=== PATIENT | female | born 1970 | race Caucasian/White ===

== ENCOUNTER 2021-02-15 19:44 | Observation (INO) ==
[2021-02-15 20:54] LABS: Basophils % 0.1 %; Eosinophils % 0.3 %; Hematocrit 38.5 % (35.3-44.9); Hemoglobin 13.2 g/dL (11.5-15.4); Immature Granulocytes % 0.4 % (0-4); Lymphocytes # 0.9 K/mcL (0.6-4.6); Lymphocytes % 11.5 %; Mean Corpuscular HGB Conc 34.3 g/dL (31.6-35.5); Mean Corpuscular Hemoglobin 28.8 pg (28.0-33.3); Mean Corpuscular Volume 84.1 fL (83.0-100.0); Mean Platelet Volume 10.4 fL (9.4-12.4); Monocytes # 0.5 K/mcL (0.0-1.3); Neutrophils # 6.4 K/mcL (1.6-8.9); Platelet Count 274 K/mcL (140-400); Red Blood Count 4.58 M/mcL (3.82-4.97); Red Cell Distribution Width 12.1 % (11.5-14.5); Segmented Neutrophils % 81.7 %; White Blood Count 7.8 K/mcL (4.3-11.1)
[2021-02-15 20:56] LABS: VBG HCO3 25 mEq/L (21-27); VBG PCO2 35 mmHg (41-51); VBG PH 7.45 pH Units (7.32-7.42); VBG PO2 45 mmHg (25-50)
[2021-02-15 20:59] LABS: INR 1.4; Prothrombin Time 15.9 Seconds (9.4-12.1)
[2021-02-15 21:02] LABS: Activated Partial Thrombo Time 25.9 Seconds (26.0-36.0)
[2021-02-15 21:11] LABS: Alanine Aminotransferase 60 Units/L (7-52); Albumin/Globulin Ratio 1.3 (1.1-2.2); Alkaline Phosphatase 69 Units/L (34-104); Aspartate Amino Transferase 63 Units/L (13-39); BUN/Creatinine Ratio 15 (6-26); Bilirubin,Direct 0.1 mg/dL (0.0-0.2); Bilirubin,Indirect 0.8 mg/dL (0.0-1.0); Bilirubin,Total 0.9 mg/dL (0.3-1.0); Blood Urea Nitrogen 10 mg/dL (6-20); Calcium 8.9 mg/dL (8.6-10.3); Carbon Dioxide 27 mEq/L (23-29); Chloride 96 mEq/L (98-107); Globulin 3.2 g/dL (2.4-3.5); Glucose 119 mg/dL (70-105); Lactate Dehydrogenase 383 Units/L (140-271); Magnesium 2.2 mg/dL (1.6-2.6); Osmolality,Calculated 282 (280-300); Phosphorous 2.8 mg/dL (2.7-4.5); Potassium 3.1 mEq/L (3.5-5.1); Sodium 136 mEq/L (136-145); Total Protein 7.2 g/dL (6.4-8.9); Troponin I < 0.03 ng/mL (< 0.04); eGFR For African Americans > 60 (> 60); eGFR For Non-African Americans > 60 (> 60)
[2021-02-15] MEDS ORDERED: Naloxone 0.4 MG/ML INJ IVP PRN (22:00)
[2021-02-15] MEDS ORDERED: Ondansetron 4 MG/2 ML VIAL IVP PRN (22:00)
[2021-02-15] MEDS ORDERED: Ipratropium/Albuterol Neb 3 ML IH SCH (22:00)
[2021-02-16] MEDS ORDERED: Acetaminophen 325 MG TABLET PO PRN (00:20)
[2021-02-16] MEDS ORDERED: Albuterol 2.5 MG/3 ML NEBULIZER IH PRN (01:00)
[2021-02-16 08:21] LABS: Ferritin 439 ng/mL (10-120)
[2021-02-16] MEDS ORDERED: Vitamin B Complex/Vit C/Vit E 1 EACH TABLET PO SCH (09:00)
[2021-02-16] MEDS ORDERED: RIBOFLAVIN 100 MG PO SCH (09:00)
[2021-02-16] MEDS ORDERED: Famotidine 20 MG TABLET PO SCH (09:00)
[2021-02-16] MEDS ORDERED: COPPER PO SCH (09:00)
[2021-02-16] MEDS ORDERED: Nystatin SUSP 5 ML UD.LIQ PO SCH (09:00)
[2021-02-16] MEDS ORDERED: Loratadine 10 MG TABLET PO SCH (09:00)
[2021-02-16] MEDS ORDERED: COPPER GLUCONATE 2 MG PO SCH (09:00)
[2021-02-16] MEDS ORDERED: [UNRECOGNIZED DRUG - OTHER] PO SCH (09:00)
[2021-02-16] MEDS ORDERED: ZINC PO SCH (09:00)
[2021-02-16] MEDS ORDERED: NON-FORMULARY MEDICATION 1 EACH EACH (Turmeric Root Extract [Turmeric] 500 MG Capsule) PO SCH (09:00)
[2021-02-16 09:47] LABS: C-Reactive Protein 86 mg/L (Less than 10)
[2021-02-16 11:49] VITALS: BP 123/73
[2021-02-16] MEDS ORDERED: CETIRIZINE HCL 10 MG PO SCH (21:00)
[2021-02-17] MEDS ORDERED: *HR* Enoxaparin 40 MG/0.4 ML SYRINGE SQ SCH (06:00)
== END 2021-02-16 16:45 | disposition home or self-care (01) ==
LOC: INPGRE 19:44 → EMEROOGRE 19:44 → INPGRE 23:05
PROVIDERS: ADMIT Family Medicine; ATTEND Family Medicine